=== PATIENT | female | born 1975 ===

== ENCOUNTER 2022-02-03 05:52 | Day surgery (SDC) | payer OTHER ==
[~2022-02-03 05:52] MED LIST: LOSARTAN POTASS50 MG PO; PROTONIX40 MG PO; SYNTHROID100 MCG PO
== END 2022-02-03 14:55 | disposition home or self-care (01) ==
LOC: CIR.AMB 05:52
PROVIDERS: ATTEND Specialist
DX: N93.9 Abnormal uterine and vaginal bleeding, unspecified (principal); I10 Essential (primary) hypertension; E78.5 Hyperlipidemia, unspecified; Z86.16 Personal history of COVID-19; Z20.822 Contact with and (suspected) exposure to COVID-19